=== PATIENT | male | born 1985 | race Caucasian/White ===

== ENCOUNTER 2016-04-24 13:48 | Emergency (ER) | payer OTHER, BC ==
[~2016-04-24] VITALS: Ht 203.2 cm; Wt 72.0 kg
--- NOTE | 2016-04-24 13:58 | NUR ---
PT ARRIVES ON SCOOP BOARD. REMOVED PT GETS UP TO URINATE AT TOILET WITH ASSISTANCE. CL
[2016-04-24] MEDS ORDERED: HYDROmorphone 2 MG/ML (DILAUDID) 1 ML SYRINGE IM ONE (14:10)
[2016-04-24] MEDS ORDERED: KETOROLAC 60 MG/2 ML (TORADOL) VIAL IM ONE (14:10)
[2016-04-24] MEDS ORDERED: PROMETHAZINE 25 MG/ML (PHENERGAN) 1 ML VIAL IM ONE (14:10)
[2016-04-24 14:15] LABS: BASOPHILS % (AUTO) 0 % (0-2); EOSINOPHILS # (AUTO) 0.1 10^3uL; EOSINOPHILS % (AUTO) 1 % (0-4); LYMPHOCYTES # (AUTO) 2.1 X10^3; MEAN CORPUSCULAR HEMOGLOBIN 30.8 PG (26.0-34.0); MEAN CORPUSCULAR VOLUME 87 FL (80-100); MEAN PLATELET VOLUME 10.6 FL (6.0-9.5); MONOCYTES # (AUTO) 0.8 X10^3; MONOCYTES % (AUTO) 6 % (3-11); NEUTROPHILS # (AUTO) 10.5 X10^3; NEUTROPHILS % (AUTO) 78 % (51-67); PLATELET COUNT 460 10^3uL (150-450); WHITE BLOOD COUNT 13.54 10^3uL (4.0-11.0)
[2016-04-24 14:17] LABS: MEAN CORPUSCULAR HGB CONC 35.5 g/dL (31.0-37.0)
[2016-04-24 14:27] LABS: ALBUMIN 5.1 g/dL (3.4-5.0); ALKALINE PHOSPHATASE 134 U/L (38-126); ANION GAP 21.8 MEQ/L (3-15); BUN/CREATININE RATIO 17 (10-20); CALCULATED IONIZED CALCIUM 4.2 mg/dL (3.8-4.6); TOTAL PROTEIN 8.2 g/dL (6.4-8.5)
[2016-04-24] MEDS ORDERED: KETOROLAC 30 MG/ML (TORADOL) 1 ML VIAL IV ONE (14:40)
[2016-04-24] MEDS ORDERED: ONDANSETRON 2 MG/ML (Z0FRAN) 2 ML VIAL IV ONE (14:40)
[2016-04-24] MEDS ORDERED: HYDROmorphone 1 MG/ML (DILAUDID) SYRINGE IV ONE ×2 (14:40→15:10)
[2016-04-24 14:44] LABS: BILIRUBIN,URINE Negative (Negative); CLARITY,URINE Clear; COLOR,URINE Yellow; GLUCOSE, URINE (UA) Negative (Negative); LEUKOCYTE ESTERASE ,URINE Negative (Negative); PH,URINE 8.5 (5.0 - 8.0); UROBILINOGEN,URINE 0.2 mg/dL (0.2-1.0)
--- NOTE | 2016-04-24 14:49 | NUR ---
Regarding "Authorization Form For Release of Protected Health Information" form: Patient made an "X" on signature line after stating, "It'll only be an X". Pt had previously given verbal consent to release the Blood Alcohol test and the Urine Drug Screen to Max Rosenbaum and their company representatives of Dominique Beasley and Marlin Arreola.
[2016-04-24 15:01] LABS: AMPHETAMINE SCREEN, URINE Negative (Negative); CANNABINOID SCREEN, URINE Negative (Negative); METHAMPHETAMINE SCREEN URINE S NEGATIVE (NEGATIVE); OPIATE SCREEN URINE Negative (Negative); PROPOXYPHENE STAT NEGATIVE (NEGATIVE)
[2016-04-24] MEDS ORDERED: LORazepam 2 MG/ML (ATIVAN) 1 ML VIAL IV ONE (15:10)
--- NOTE | 2016-04-24 15:15 | NUR ---
Dominique Beasley, [facility], with [employer] [place] reports that her co-worker, Mary Ellen Watkins, has contacted the physician, Dr. Hobbs, in [place] and reports that this doctor believes there is probably nothing wrong with the pt other than he has been sleeping past few nights on cot or chair at the hospital where his recently delivered a baby. Dr. Hobbs has already called in Medrol Dosepak to Pharmacy here in [place]. The script for Medrol Dosepak at Pharmacy was confirmed by this nurse by contacting Pharmacy. This information was relayed to ED physician, Dr. Brumfield.
[2016-04-24 19:01] VITALS: BP 114/74
== END 2016-04-24 16:23 | disposition home or self-care (01) ==
LOC: EDUNIT# 13:48 → ED 13:50
DX: M54.5 Low back pain (principal); F10.229 Alcohol dependence with intoxication, unspecified; Y90.6 Blood alcohol level of 120-199 mg/100 ml
CPT/HCPCS: 36415; 80053; 80307; 80320; 80329; 81003; 85025; 86140; 99284; J1170; J1885; J2060; J2405; 96374; 96375; 96376; 99283

== ENCOUNTER → 2016-04-24 | Outpatient (CLI) | payer OTHER, BC | LOC: EMS 13:45 | PROVIDERS: ATTEND Family Medicine | DX: M54.89 Other dorsalgia (principal) ==

== ENCOUNTER 2016-04-29 00:08 | Emergency (ER) | payer OTHER, BC ==
[~2016-04-29] VITALS: Ht 203.2 cm; Wt 72.3 kg
[2016-04-29] MEDS ORDERED: LORazepam 2 MG/ML (ATIVAN) 1 ML VIAL IM ONE (00:55)
--- NOTE | 2016-04-29 01:31 | NUR ---
ATIVAN WAS GIVEN IM NO IV SO NO START STOP TIME
[2016-04-29 01:32] VITALS: BP 104/78
== END 2016-04-29 01:35 | disposition home or self-care (01) ==
LOC: ED 00:10
DX: F11.23 Opioid dependence with withdrawal (principal); F41.9 Anxiety disorder, unspecified; T40.2X5A Adverse effect of other opioids, initial encounter
CPT/HCPCS: 96372; 99282; J2060

== ENCOUNTER 2016-05-03 15:57 | Emergency (ER) | payer OTHER, BC ==
[~2016-05-03] VITALS: Ht 182.9 cm; Wt 70.0 kg
[2016-05-03 16:12] VITALS: BP 117/90
--- NOTE | 2016-05-03 17:30 | NUR ---
PT CALLS TO SEE WHAT WE ARE DOING WITH PT. INFORMED THIS RN CAN NOT GIVE PT INFO OVER THE PHONE & CALL TSF TO PT RM. CL
[2016-05-03] MEDS ORDERED: HYDROmorphone 1 MG/ML (DILAUDID) SYRINGE IM ONE (17:35)
[2016-05-03] MEDS ORDERED: ORPHENADRINE 60 MG/2 ML (NORFLEX) AMP IM ONE (17:35)
== END 2016-05-03 17:54 | disposition home or self-care (01) ==
LOC: ED 16:01
DX: M54.5 Low back pain (principal)
CPT/HCPCS: 96372; 99282; J1170; J2360; 99283

== ENCOUNTER 2016-07-05 14:10 | Emergency (ER) | payer BC, OTHER ==
[~2016-07-05] VITALS: Ht 203.2 cm; Wt 78.0 kg
[~2016-07-05 14:10] MED LIST: AMOX500T2 PO; AMOX875T2 PO; AZIT250T81 PO; BACI28.32 EXT; BENZ200C43 PO; CEPH-331 PO; CEPH-507 PO; CLIN-78 PO; CTLP20T PO; CYCL10TA45 PO; DULO60CA58 PO; HYDR-2013 PO; HYDR-3702 PO; HYDR-3754 PO; HYDR-4131 PO; IBUP-1772 PO; LORA1TAB PO; METH4TAB27 PO; NF-TORA10 PO; NO HOME MEDICATIONS; ONDA4TAB8 PO; OXYC1TAB8 PO; OXYC1TAB87 PO; PENI500T PO; PRED20TA PO; TRAM-25 PO; TRM50T PO
[2016-07-05 14:23] VITALS: BP 138/82
[2016-07-05] MEDS ORDERED: DULO60CA58 PO (14:48)
[2016-07-05] MEDS ORDERED: MELO-249 PO (14:48)
[2016-07-05] MEDS ORDERED: AC500T PO (14:49)
[2016-07-05] MEDS ORDERED: OXYC1TAB87 PO (15:09)
[2016-07-05] MEDS ORDERED: CHLO500T2 PO (15:09)
== END 2016-07-05 15:14 | disposition home or self-care (01) ==
LOC: ED 14:13
DX: M54.5 Low back pain (principal)
CPT/HCPCS: 99282; 99283

== ENCOUNTER 2016-07-12 19:33 | Emergency (ER) | payer OTHER ==
[~2016-07-12] VITALS: Ht 203.2 cm; Wt 73.7 kg
[~2016-07-12 19:33] MED LIST changes: +AC500T PO; +CHLO500T2 PO; +MELO-249 PO
[2016-07-12] MEDS ORDERED: ORPHENADRINE 60 MG/2 ML (NORFLEX) AMP IM ONE (20:40)
[2016-07-12] MEDS ORDERED: HYDROmorphone 1 MG/ML (DILAUDID) SYRINGE IM ONE ×2 (20:40→21:30)
[2016-07-12] MEDS ORDERED: ONDANSETRON 4 MG (ZOFRAN) ORAL DISSOLVE TAB PO ONE (20:40)
[2016-07-12] MEDS ORDERED: TRM50T PO (20:42)
[2016-07-12] MEDS ORDERED: ESCI20TA PO (20:42)
--- NOTE | 2016-07-12 21:26 | NUR ---
Pt states that his pain is really not any better.
--- NOTE | 2016-07-12 21:27 | NUR ---
Dr. Ervin was notified of pt's condition
[2016-07-12 22:10] VITALS: BP 138/61
== END 2016-07-12 21:55 | disposition home or self-care (01) ==
LOC: ED 19:35
DX: M54.31 Sciatica, right side (principal)
CPT/HCPCS: 96372; 99283; J1170; J2360; 99282

== ENCOUNTER 2016-07-14 17:16 | Emergency (ER) | payer OTHER ==
[~2016-07-14] VITALS: Ht 182.9 cm; Wt 72.0 kg
[~2016-07-14 17:16] MED LIST changes: +ESCI20TA PO
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
--- NOTE | 2016-07-14 17:35 | NUR ---
DR JANINE ZEPEDA RE PT. CL
[2016-07-14] MEDS ORDERED: KETOROLAC 60 MG/2 ML (TORADOL) VIAL IM ONE (18:40)
[2016-07-14] MEDS ORDERED: PROMETHAZINE 25 MG/ML (PHENERGAN) 1 ML VIAL IM ONE (18:40)
[2016-07-14] MEDS ORDERED: HYDROmorphone 2 MG/ML (DILAUDID) 1 ML SYRINGE IM ONE (18:40)
[2016-07-14 18:54] VITALS: BP 116/75
== END 2016-07-14 18:55 | disposition home or self-care (01) ==
LOC: ED 17:17
DX: M54.31 Sciatica, right side (principal); F17.210 Nicotine dependence, cigarettes, uncomplicated
CPT/HCPCS: 96372; 99284; J1170; J1885; J2550; 99282

== ENCOUNTER 2016-07-21 11:15 | Emergency (ER) | payer OTHER ==
[~2016-07-21] VITALS: Ht 182.9 cm; Wt 69.6 kg
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
--- NOTE | 2016-07-21 11:51 | NUR ---
DR MCFADDEN TALKS WITH DR WILKINS RE PT. CL
--- NOTE | 2016-07-21 11:56 | NUR ---
PT TALKS WITH PT & HIS RE OPTIONS. CL
[2016-07-21] MEDS ORDERED: ORPHENADRINE 60 MG/2 ML (NORFLEX) AMP IM ONE (12:00)
[2016-07-21] MEDS ORDERED: HYDROmorphone 1 MG/ML (DILAUDID) SYRINGE IM ONE (12:00)
[2016-07-21 14:21] VITALS: BP 133/76
== END 2016-07-21 12:18 | disposition home or self-care (01) ==
LOC: EDUNIT# 11:15 → ED 11:17
DX: M54.5 Low back pain (principal)
CPT/HCPCS: 96372; 99282; J1170; J2360; 99283

== ENCOUNTER 2016-07-25 19:46 | Emergency (ER) | payer OTHER ==
[~2016-07-25] VITALS: Ht 203.2 cm; Wt 72.0 kg
[2016-07-25] MEDS ORDERED: ONDANSETRON 4 MG (ZOFRAN) ORAL DISSOLVE TAB PO ONE (20:15)
[2016-07-25] MEDS ORDERED: HYDROmorphone 1 MG/ML (DILAUDID) SYRINGE IM ONE (20:15)
[2016-07-25 20:29] VITALS: BP 123/69
== END 2016-07-25 20:30 | disposition home or self-care (01) ==
LOC: ED 19:48
DX: M54.5 Low back pain (principal); G89.29 Other chronic pain
CPT/HCPCS: 96372; 99282; J1170

== ENCOUNTER 2016-07-29 12:04 | Emergency (ER) | payer OTHER ==
[~2016-07-29] VITALS: Ht 182.9 cm; Wt 70.7 kg
[2016-07-29] MEDS ORDERED: GBPN300C PO (12:22)
[2016-07-29] MEDS ORDERED: OXYC-109 PO (12:22)
[2016-07-29] MEDS ORDERED: PROMETHAZINE 25 MG/ML (PHENERGAN) 1 ML VIAL IM ONE (12:55)
[2016-07-29] MEDS ORDERED: HYDROmorphone 1 MG/ML (DILAUDID) SYRINGE IM ONE (12:55)
--- NOTE | 2016-07-29 12:55 | NUR ---
Dilaudid and Phenergan compatible via syringe - verified with clinical pharmacology.
--- NOTE | 2016-07-29 13:03 | NUR ---
Patient became very anxious during and after IM injection - diaphoretic. This nurse had patient sit down. Recovered after a few minutes. Girlfriend states that patient does this with every IM injection. Patient has had both medications before and doctor states it is ok for him to go home. Patient feels comfortable going home.
[2016-07-29 13:09] VITALS: BP 136/96
== END 2016-07-29 13:10 | disposition home or self-care (01) ==
LOC: ED 12:05
DX: M54.5 Low back pain (principal); G89.29 Other chronic pain
CPT/HCPCS: 96372; 99282; J1170; J2550

== ENCOUNTER 2016-07-30 18:10 | Emergency (ER) | payer OTHER ==
[~2016-07-30] VITALS: Ht 203.2 cm; Wt 68.2 kg
[~2016-07-30 18:10] MED LIST changes: +GBPN300C PO; +OXYC-109 PO
[2016-07-30] MEDS ORDERED: ONDANSETRON 4 MG (ZOFRAN) ORAL DISSOLVE TAB PO ONE (18:30)
[2016-07-30 19:21] VITALS: BP 121/71
== END 2016-07-30 18:34 | disposition home or self-care (01) ==
LOC: ED 18:11
DX: G44.40 Drug-induced headache, not elsewhere classified, not intractable (principal); R51 Headache; R11.0 Nausea; T40.4X5A Adverse effect of other synthetic narcotics, initial encounter; Y92.009 Unspecified place in unspecified non-institutional (private) residence as the place of occurrence of the external cause
CPT/HCPCS: 99282